=== PATIENT | female | born 1955 | race Caucasian/White ===

== ENCOUNTER 2020-02-14 08:33 | Outpatient (CLI) | payer BC, SELFPAY ==
--- NOTE | ~2020-02-14 | MM_ITS ---
EXAMINATION: MM screening [facility] BI w lindsey HISTORY: Screening mammogram TECHNIQUE: Craniocaudal and mediolateral oblique 3-D tomosynthesis images were obtained and synthetic 2-D images were generated. CAD analysis was submitted and interpreted. COMPARISON: 11/29/2018, 11/02/2017, 08/03/2016 bilateral digital screening mammogram examinations BREAST PARENCHYMAL COMPOSITION: There are scattered areas of fibroglandular density. FINDINGS: Stable mild fibroglandular asymmetry. There is no evidence of suspicious mass, calcificatio n, or architectural distortion to suggest malignancy in either breast. There has been no suspicious i nterval change. IMPRESSION: 1. No mammographic evidence of malignancy. 2. Recommend routine screening mammography in one year. BI-RADS Category 1: Negative Reviewed, dictated and finalized at location A.
== END 2020-02-14 08:34 | disposition home or self-care (01) ==
LOC: ANHIMG 08:35
PROVIDERS: PCP Physician Assistant; Visit Provider Physician Assistant
DX: Z12.31 Encounter for screening mammogram for malignant neoplasm of breast (principal)
CPT/HCPCS: 77063; 77067

== ENCOUNTER 2021-04-07 13:39 | Outpatient (CLI) | payer BC, SELFPAY ==
--- NOTE | ~2021-04-07 | DEXA_ITS ---
Bone Density Report Name: Paula Zelaya Age: 65 Sex: Female Ethnicity: White Date of : 1955 Indication: postmenopausal; hysterectomy; Referring Provider: Aurelia, Piter Study: Bone densitometry was performed. Exam Date: April 07, 2021 Accession number: [id number] Bone Density: Region BMD T-score Z-score Classification AP Spine (L1-L4) 1.087 0.4 2.1 Normal Femoral Neck (Left) 0.822 -0.2 1.2 Normal Total Hip (Left) 1.034 0.8 2.0 Normal Total Hip Bilateral Avg 1.044 0.8 2.0 Normal Femoral Neck (Right) 0.829 -0.2 1.3 Normal Total Hip (Right) 1.052 0.9 2.1 Normal World Health Organization criteria for BMD impression classify patients as: Normal (T-score at or above -1.0), Osteopenia (T-score between -1.0 and -2.5), or Osteoporosis (T-score at or below -2.5). 10-year Fracture Risk: FRAX not reported because: All T-scores for Spine Total, Hip Total, Femoral Neck at or above -1.0 Previous Exams: Region Exam Age BMD T-score BMD Change BMD Change Date g/cm2 vs Baseline vs Previous AP Spine(L1-L4) 04/07/2021 65 1.087 0.4 -0.212(-16.3%) -0.014(-1.3%) 08/03/2016 61 1.101 0.5 -0.198(-15.2%) 0.006(0.6%)# 11/04/2013 58 1.095 0.4 -0.204(-15.7%) -0.186(-14.5%) 07/24/2009 53 1.281 2.1 -0.019(-1.4%) -0.019(-1.4%) 10/04/2005 50 1.299 2.3 Total Hip(Left) 04/07/2021 65 1.034 0.8 -0.166(-13.9%) -0.021(-2.0%) 08/03/2016 61 1.055 0.9 -0.146(-12.1%) 0.022(2.1%)# 11/04/2013 58 1.033 0.7 -0.167(-13.9%) -0.138(-11.8%) 07/24/2009 53 1.171 1.9 -0.030(-2.5%)* -0.030(-2.5%)* 10/04/2005 50 1.200 2.1 Total Hip(Right) 04/07/2021 65 1.052 0.9 -0.182(-14.8%) -0.017(-1.6%) 08/03/2016 61 1.069 1.0 -0.165(-13.4%) 0.012(1.1%)# 11/04/2013 58 1.057 0.9 -0.177(-14.4%) -0.129(-10.9%) 07/24/2009 53 1.186 2.0 -0.048(-3.9%)* -0.048(-3.9%)* 10/04/2005 50 1.234 2.4 *Denotes significance at 95% confidence level, LSC for AP Spine = 0.022 g/cm2, LSC for Total Hip = 0.027 g/cm2 Clinical Information Provided by Patient: Has the following medical conditions: Hysterectomy Patient maximum height was 64 Menopause Age: 49 Drinks caffeinated beverages Onset of menses at age 14 Number of children 2 Impression: The patient has normal bone mass. No significant bone loss was observed. Discussion: BONE DENSITY IS ABOVE THE MINIMUM DESIRABLE LEVEL AT ALL SKELETAL SITES OG
--- NOTE | ~2021-04-07 | MM_ITS ---
EXAMINATION: MM screening nidia BI w lindsey HISTORY: Screening mammogram TECHNIQUE: Craniocaudal and mediolateral oblique 3-D tomosynthesis images were obtained and synthetic 2-D images were generated. Bilateral rotated lateral cc views. CAD analysis was submitted and interp reted. COMPARISON: 02/14/2020, 11/29/2018, 11/02/2017 bilateral digital screening mammogram examinations BREAST PARENCHYMAL COMPOSITION: There are scattered areas of fibroglandular density. FINDINGS: There is no evidence of suspicious mass, calcification, or architectural distortion to sugg est malignancy in either breast. There has been no suspicious interval change. IMPRESSION: 1. No mammographic evidence of malignancy. 2. Recommend routine screening mammography in one year. BI-RADS Category 1: Negative Reviewed, dictated and finalized at location A.
== END 2021-04-07 13:40 | disposition home or self-care (01) ==
LOC: ANHIMG 13:42
PROVIDERS: PCP Physician Assistant; Visit Provider Physician Assistant
DX: Z12.31 Encounter for screening mammogram for malignant neoplasm of breast (principal); Z78.0 Asymptomatic menopausal state
CPT/HCPCS: 77063; 77067; 77080

== ENCOUNTER → 2021-06-30 14:28 | Outpatient (CLI) | payer BC, SELFPAY ==
--- NOTE | ~2021-06-30 | XR_ITS ---
EXAMINATION: XR knee LT 3V DATE: 06/30/2021 14:48 INDICATION: Anterior left knee pain. TECHNIQUE: 3 views of left knee were obtained. COMPARISON: None. FINDINGS: Bone alignment is normal. No fracture. There is mild tricompartmental osteoarthritis charac terized by marginal osteophytes. No joint space narrowing. There is a small knee joint effusion. IMPRESSION: 1. Mild left knee osteoarthritis. 2. Small left knee joint effusion. Reviewed, dictated and finalized at location A.
== END ==
PROVIDERS: PCP Physician Assistant; Visit Provider Physician Assistant
DX: M25.462 Effusion, left knee (principal); M17.12 Unilateral primary osteoarthritis, left knee
CPT/HCPCS: 73562

== ENCOUNTER 2022-07-11 07:45 | Outpatient (CLI) | payer MEDICARE, SELFPAY ==
--- NOTE | ~2022-07-11 | MM_ITS ---
EXAMINATION: MM screening [facility] BI w lindsey HISTORY: Screening TECHNIQUE: Craniocaudal and mediolateral oblique 3-D tomosynthesis images were obtained and synthetic 2-D images were generated. CAD analysis was submitted and interpreted. COMPARISON: Comparison to multiple prior studies sequentially, with oldest reviewed study dated 07/13. BREAST PARENCHYMAL COMPOSITION: There are scattered areas of fibroglandular density. FINDINGS: There is no evidence of suspicious mass, calcification, or architectural distortion to sugg est malignancy in either breast. There has been no suspicious interval change. IMPRESSION: 1. No mammographic evidence of malignancy. 2. Recommend routine screening mammography in one year. BI-RADS Category 1: Negative Reviewed, dictated and finalized at location A.
== END 2022-07-11 07:46 | disposition home or self-care (01) ==
LOC: ANHIMG 07:47
PROVIDERS: PCP Physician Assistant; Visit Provider Physician Assistant
DX: Z12.31 Encounter for screening mammogram for malignant neoplasm of breast (principal)
CPT/HCPCS: 77063; 77067

== ENCOUNTER 2023-07-17 13:55 | Outpatient (CLI) | payer MEDICARE, SELFPAY ==
--- NOTE | ~2023-07-17 | DEXA_ITS ---
Bone Density Report Name: CORNELIO MCKEON Age: 67 Sex: Female Ethnicity: White Date of : 1955 Indication: postmenopausal; screening for osteoporosis; height loss; hysterectomy; Referring Provider: ERA, RAJ Study: Bone densitometry was performed. Exam Date: July 17, 2023 Accession number: [id number] Bone Density: Region BMD T-score Z-score Classification AP Spine(L1-L4) 1.091 0.4 2.3 Normal Femoral Neck (Left) 0.773 -0.7 0.9 Normal Total Hip (Left) 1.045 0.8 2.2 Normal Femoral Neck (Right) 0.817 -0.3 1.3 Normal Total Hip (Right) 1.037 0.8 2.1 Normal Femoral Neck Mean 0.795 -0.5 1.1 Normal Total Hip Mean 1.041 0.8 2.1 Normal World Health Organization criteria for BMD impression classify patients as: Normal (T-score at or above -1.0), Osteopenia (T-score between -1.0 and -2.5), or Osteoporosis (T-score at or below -2.5). 10-year Fracture Risk: FRAX not reported because: All T-scores for Spine Total, Hip Total, Femoral Neck at or above -1.0 Clinical Information Provided by Patient: Has the following medical conditions: Hysterectomy Patient maximum height was 64 Menopause Age: 48 Drinks caffeinated beverages Onset of menses at age 14 Number of children 2 Impression: The patient has normal bone mass. Discussion: BONE DENSITY IS ABOVE THE MINIMUM DESIRABLE LEVEL AT ALL SKELETAL SITES TESTED. This patient?s bone mineral density is above the minimum desirable level (T-score -1.0 or better) at all sites measured. The patient should follow a healthful lifestyle (good nutrition with adequate calcium and vitamin D, and appropriate weight-bearing exercise). Follow-Up: Consider repeating this study in 5 years or sooner if there is some new clinical indication. Reported by: Dr. Darshan Stearns on 07/17/2023 2:28:00 PM. Reviewed, dictated and finalized at location A.
--- NOTE | ~2023-07-17 | MM_ITS ---
EXAMINATION: MM screening nidia BI w lindsey HISTORY: Screening TECHNIQUE: Craniocaudal and mediolateral oblique 3-D tomosynthesis images were obtained and synthetic 2-D images were generated. CAD analysis was submitted and interpreted. COMPARISON: Comparison to multiple prior studies sequentially, with oldest reviewed study dated 07/13. BREAST PARENCHYMAL COMPOSITION: There are scattered areas of fibroglandular density. FINDINGS: There is no evidence of suspicious mass, calcification, or architectural distortion to sugg est malignancy in either breast. There has been no suspicious interval change. IMPRESSION: 1. No mammographic evidence of malignancy. 2. Recommend routine screening mammography in one year. BI-RADS Category 1: Negative Reviewed, dictated and finalized at location A. NG MACHINE OPERATOR
== END 2023-07-17 13:56 | disposition home or self-care (01) ==
LOC: CHSIMG 13:57
PROVIDERS: PCP Physician Assistant; Visit Provider Physician Assistant
DX: Z12.31 Encounter for screening mammogram for malignant neoplasm of breast (principal); Z78.0 Asymptomatic menopausal state
CPT/HCPCS: 77063; 77067; 77080

== ENCOUNTER 2024-12-27 15:44 | Outpatient (CLI) | payer MEDICARE, SELFPAY ==
--- NOTE | ~2024-12-27 | XR_ITS ---
XR hip RT min 2V 12/27/2024 16:03 Indication: Right hip pain Procedure: 2 views right hip Comparison: 11/16/2018 Findings: There is mild osteoarthritis of the right hip. No fracture or traumatic malalignment. There is anatomic alignment. No soft tissue abnormality. Impression: 1: Mild osteoarthritis of the right hip. Reviewed, dictated and finalized at location B. Impression: 1: Mild osteoarthritis of the right hip.
== END 2024-12-27 15:45 | disposition home or self-care (01) ==
LOC: GOSHIMG 15:46
PROVIDERS: PCP Physician Assistant; Visit Provider Physician Assistant
DX: M16.11 Unilateral primary osteoarthritis, right hip (principal)
CPT/HCPCS: 73502

== ENCOUNTER 2025-05-27 12:44 | Outpatient (CLI) | payer MEDICARE, SELFPAY ==
--- NOTE | ~2025-05-27 | MM_ITS ---
EXAMINATION: MM screening nidia BI w lindsey HISTORY: Screening TECHNIQUE: Craniocaudal and mediolateral oblique 3-D tomosynthesis images were obtained and synthetic 2-D images were generated. CAD analysis was submitted and interpreted. COMPARISON: 07/11/2022 BREAST PARENCHYMAL COMPOSITION: The breasts are heterogeneously dense, which may obscure small masses. FINDINGS: There is no evidence of suspicious mass, calcification, or architectural distortion to suggest malignancy. There has been no suspicious interval change. IMPRESSION: 1. No mammographic evidence of malignancy. Recommend routine screening mammography in one year. BI-RADS Category 2: Benign finding(s) Reviewed, dictated and finalized at location Q. IMPRESSION: 1. No mammographic evidence of malignancy. Recommend routine screening mammogra phy in one year. BI-RADS Category 2: Benign finding(s)
--- OUTSIDE RECORDS SUMMARY | 2025-05-27 14:18 | XMS_ITS | Clinical Summary ---
Author Organization [facility] [employer] Address [address] [place] [address] Care Team Providers Care Hospice Team Lead Name Role Phone Ronald Dillon MD Primary Care Provider [phone] Source Comments [facility] [employer]non-owned Affiliates and Associated Physician Practices is amultiple site organization consisting of ambulatory clinics and hospital sitesin [place], [place], [place] and [place]. This disclosure is being madepursuant to the Care Everywhere program and may not contain all information available regarding this patient. Last updated 18.Eferio [employer] Allergies No known active allergies Medications * Be aware that medications may not be up to date on this document. Alwaysverify current medications with the patient. SIMVASTATIN PO Take by mouth. Active Immunizations Immunization Administration Dates Next Due TDAP (7yrs+) 11/14/2018 Social History Tobacco Use Types Packs/Day Years Used Date Smoking Tobacco: Never Alcohol Use Standard Drinks/Week Comments Not Asked 0 (1 standard drink = 0.6 oz pur e alcohol) Comments No Sex and Gender Information Value Date Recorded Sex Assigned at Not on file Legal Sex Female 11:34 AM CDT Gender Identity Not on file Sexual Orientation Not on file Last Filed Vital Signs Vital Sign Reading Time Taken Comments Blood Pressure 145/85 01/17/2015 11:46 AM CDT Pulse 61 01/17/2015 11:46 AM CDT Temperature 36.8 C (98.3 F) 01/17/2015 11:46 AM CDT Respiratory Rate 14 01/17/2015 11:46 AM CDT Oxygen Saturation 100% 01/17/2015 11:46 AM CDT Inhaled Oxygen Concentration - - Weight 78.5 kg (173 lb) 01/17/2015 11:46 AM CDT Height 162.6 cm (5' 4) 01/17/2015 11:46 AM CDT Body Mass Index 29.7 01/17/2015 11:46 AM CDT Plan of Treatment Health Maintenance Due Date Last Done Comments BONE DENSITY TESTING 1955 COLOGUARD (AGES 45-75) - COL ON CA SCREENING 1955 COLON MONITORING 1955 COLONOSCOPY - COLON CA SCREENING 1955 CT COLONOGRAPHY - COLON CA SCREENING 1955 Colorectal Cancer Screening 1955 FIT - COLON CA SCREENING 1955 FLEX SIG - COLON CA SCREENING 1955 MAMMOGRAM 1955 HEPATITIS C SCREENING 07/21/1974 PNEUMOCOCCAL VACCINE 50+ (1 of 1 - PCV) 2006 ZOSTER VACCINE (1 of 2) 2006 DEPRESSION SCREENING 09/11/2024 COVID-19 VACCINE (1 - 2023-2 5 season) 2025 INFLUENZA VACCINE (#1) 2025 DTAP/TDAP/TD VACCINES (2 - T d or Tdap) 11/14/2028 11/14/2018 Respiratory Syncytial Virus (RSV) Vaccine Pt: or over 60 yrs (1 - 1-dose 75+ series) 2031 HEPATITIS B VACCINE Aged Out No longe r eligible based on patient's age to complete this topic HIB VACCINE Aged Out No longer eligi ble based on patient's age to complete this topic HPV VACCINE Aged Out No longer eligi ble based on patient's age to complete this topic MENINGOCOCCAL (Group B) VACC INE SHARED DECISION-MAKING Aged Out No longer eligibl e based on patient's age to complete this topic MENINGOCOCCAL GROUPS A/C/Y/W VACCINE Aged Out No longer eligible b ased on patient's age to complete this topic [facility] Care Teams Hospice Team Lead Relationship Specialty Start Date End Date Ronald Dillon MD [address] [address] PCP - General Family Medicine 01/17/15
== END 2025-05-27 12:45 | disposition home or self-care (01) ==
PROVIDERS: PCP Physician Assistant; Visit Provider Physician Assistant
DX: Z12.31 Encounter for screening mammogram for malignant neoplasm of breast (principal)
CPT/HCPCS: 77063; 77067

== ENCOUNTER 2025-07-03 08:06 | Emergency (ER) | payer MEDICARE, SELFPAY ==
[2025-07-03 08:16] VITALS: BP 142/80; PULSE 93; RESP 16; TEMP 36.5; O2SAT 99
--- NOTE | 2025-07-03 08:28 | ED_ITS ---
HPI - URI/Sore Throat General Chief Complaint: Upper Respiratory Infection Stated Complaint: Ear Pain Time Seen by Provider: 07/03/25 08:15 Source: patient and RN notes reviewed Mode of arrival: ambulatory Limitations: no limitations History of Present Illness HPI Narrative: 69-year-old female presents to the [facility] complaining of left ear pain since yesterday. Patient said she has been doing with upper respiratory symptoms for the last 7 to 8 days. Patient also reports having congestion, sinus pressure, mucopurulent nasal drainage, and slight cough. Patient denies any sore throat, nausea vomiting, diarrhea, chest pain, difficulty breathing, fevers, body aches, chills, or any other symptoms. Patient has tried [id number] cold/flu medications without relief. Patient denies any significant past medical history. Related Data Allergies Allergy/AdvReac Type Severity Reaction Status Date / Time No Known Allergies Allergy Verified 07/03/25 08:14 Review of Systems Review of Systems: CONSTITUTIONAL: Denies fever, chills, body aches, or sweats. EYES: Denies visual changes, redness, or discharge. ENT: Positive for sinus pressure, congestion, and otalgia. Negative for rhinorrhea. CARDIOVASCULAR: Denies chest pain, palpitations, or edema. RESPIRATORY: Positive for cough. Negative for dyspnea or wheezing. GASTROINTESTINAL: Denies abdominal pain, nausea, vomiting, or diarrhea. GENITOURINARY: Denies dysuria or hematuria. SKIN: Denies rash or itching. MUSCULOSKELETAL: Denies back pain, joint pain, or myalgia. NEUROLOGIC: Denies headache, numbness, or weakness. PSYCHIATRIC: Denies anxiety or depression. All other systems reviewed are negative, except as documented in HPI. [facility] Surgical History Surgical History History of breast surgery History of total hysterectomy History of section H/O knee surgery Family History Family History Sibling Diabetes mellitus Father Family history of cardiovascular disease, Onset Age: 59 Acute myocardial infarction, Onset Age: 59 Mother Family history of malignant neoplasm of breast in first degree relative Social History Social History Smoking status: Never smoker Alcohol intake: never Comments At the time of my signature, I reviewed and agree with the nursing past medical, surgical, social, and family history. There is no relevant family history pertinent to the patient complaint. Exam Narrative: GENERAL: This is a well-nourished, well-developed adult, in no apparent distress. They are non ill-appearing, nontoxic appearing. HEAD: normocephalic, atraumatic. EYES: Sclera clear/white. Vision is grossly intact. Conjunctiva normal bilaterally. Extraocular movements intact. EARS: External ears normal, auditory canals clear and without drainage, right TMs without erythema or perforation. Left TM erythematous with suppuration, bulging. No perforation. Hearing grossly intact. NOSE: External nose normal with no obvious nasal discharge, nasal turbinates erythematous, no rhinorrhea. THROAT: Mucous membranes moist, posterior pharynx boggy without erythema, without exudate. Uvula is midline. Postnasal drip present. NECK: Neck supple, non-tender without lymphadenopathy, masses or thyromegaly. CARDIOVASCULAR: Regular rate and rhythm without murmurs, gallops, or rubs. RESPIRATORY: Clear to auscultation. Breath sounds equal bilaterally. No wheezes, rales, or rhonchi. SKIN: warm, Dry, intact with no suspicious lesions or rash, good texture and turgor. NEURO: awake, alert, and oriented to person, place and time. There were no obvious focal neurologic abnormalities. EXTREMITIES: No joint tenderness, effusion, or edema noted. BACK: Nontender without deformity. Course Course Emergency Course: Portions of this record may have been created with voice recognition software Level of Care: Express Care Visit Vital Signs Vital signs: Vital Signs Temperature 97.7 F 07/03/25 08:16 Pulse Rate 93 07/03/25 08:16 Respiratory Rate 16 07/03/25 08:16 Blood Pressure 142/80 H 07/03/25 08:16 Pulse Oximetry 99 07/03/25 08:16 Temperature 97.7 F 07/03/25 08:16 Pulse Rate 93 07/03/25 08:16 Respiratory Rate 16 07/03/25 08:16 Blood Pressure 142/80 H 07/03/25 08:16 Pulse Oximetry 99 07/03/25 08:16 MDM - URI/Sore Throat MDM Narrative Medical decision making narrative: Patient has left-sided otitis media. Will also cover for bacterial sinusitis given length of symptoms with Augmentin. Discussed physical exam findings. Advised supportive measures and signs/symptoms to go to the ER. Pt is appropriate for outpt treatment and f/u. Differential Diagnosis Differential diagnosis: Likely upper respiratory infection, otitis media, sinusitis and viral infection Discharge Plan Discharge Clinical Impression: Otitis media Qualifiers: Otitis media type: suppurative Chronicity: acute Laterality: left Recurrence: non-recurrent Spontaneous tympanic membrane rupture: without spontaneous rupture Qualified Code(s): H66.002 - Acute suppurative otitis media without spontaneous rupture of ear drum, left ear Patient Disposition: Home Condition: Stable Instructions: Antibiotic Form, Ear Infection (ED) Additional Instructions: Take antibiotics as directed. You may take Zyrtec or Claritin as needed for congestion. Follow instructions on the bottle. Flonase nasal spray for congestion,2 sprays in each nostril once daily until symptoms improve Symptomatic treatment includes: rest, fluids, and increase humidity of the air at home. Tylenol or ibuprofen as needed for pain or fevers. Follow instructions on the bottle. Please schedule a follow-up visit with your personal physician for further evaluation and treatment within 3-5days. If you developed difficulty breathing, chest pains, worsening symptoms, fevers, nausea vomiting, or any serious concerns please go to the ER immediately. Patient Language: Turkmen Prescriptions: New amoxicillin-pot clavulanate 875-125 mg tablet 1 tablet PO Q12H 7 Days Qty: 14 0RF Follow-up/Referrals: Aurelia,BETSY Mckinney [Primary Care Provider, Unknown] Time of Disposition: 08:28
== END 2025-07-03 08:31 | disposition home or self-care (01) ==
PROVIDERS: PCP Physician Assistant
DX: H66.002 Acute suppurative otitis media without spontaneous rupture of ear drum, left ear (principal)
CPT/HCPCS: 99213; G0463